=== PATIENT | female | born 1980 | race Caucasian/White ===

== ENCOUNTER 2022-04-24 08:03 | Day surgery (SDC) | payer MEDICAID ==
[2022-04-23 13:59] LABS: HCG,QUAL RESULT NEGATIVE (NEGATIVE)
[~2022-04-24] VITALS: Ht 162.6 cm; Wt 59.0 kg
[2022-04-24] MEDS ORDERED: SIMETHICONE 80 MG TAB.CHEW ONE (09:07)
[2022-04-24] MEDS: MIDAZOLAM HCL 5 MG/5 ML VIAL ONE ×4 (09:09→09:21)
[2022-04-24] MEDS: fentaNYL CITRATE/PF 100 MCG/2 ML AMP ONE ×3 (09:09→09:14)
[2022-04-24 13:05] VITALS: BP_SYST 107
== END 2022-04-24 10:50 | disposition home or self-care (01) ==
LOC: SDS 08:03 → SMU 08:06 → SDS 10:50
PROVIDERS: ATTEND Internal Medicine
DX: K62.5 Hemorrhage of anus and rectum (principal); K64.8 Other hemorrhoids; Z20.822 Contact with and (suspected) exposure to COVID-19
CPT/HCPCS: 87426; 84703; 36415; 45378; 99152; G0378; J2250; J3010